=== PATIENT | male | born 1945 | race Caucasian/White ===

== ENCOUNTER 2018-03-10 16:06 | Emergency (ER) | payer OTHER, MEDICARE ==
[2018-03-10 16:10] VITALS: BMI 27.5
[2018-03-10 16:59] LABS: BASO % 0.8 % (0-2.0); EOS % 2.1 % (0-4.5); HEMATOCRIT 44.1 % (35.4-49); HEMOGLOBIN 15.1 GM/dL (11.7-16.9); LYMPH % 25.8 % (8-40); MCH 31.3 pg (25.7-33.7); MCHC 34.2 g/dl (32.0-35.9); MEAN CELL VOLUME 91.6 fl (80-96); MEAN PLT VOLUME 8.9 fl (7.5-11.1); MONO % 10.3 % (3.8-10.2); PLATELET COUNT 214 K/MM3 (134-434); RBC 4.82 M/mm3 (4.00-5.60); RDW 13.5 % (11.9-15.9); WHITE BLOOD COUNT 5.8 K/mm3 (4.0-10.0)
[2018-03-10] MEDS ORDERED: SODIUM CHLORIDE 1,000 ML IV SCH (17:00)
--- NOTE | 2018-03-10 17:00 | PDOC ---
History of Present Illness - General History Source: Patient Exam Limitations: No Limitations - History of Present Illness Initial Comments: 03/10/18 18:52 The patient is a 72 year old male, with a significant past medical history of hypertension and hyperlipidemia, who presents to the emergency department with left sided weakness and chest pain since approximately 13:30. As per daughter, the patient has been increasingly confused, to the point where he couldnt remember how to hold a fork to picker packer a piece of watermelon yesterday. Daughter reports patient is typically sharp and active at baseline. As a result , patient was consulted by Neurologist, Dr. Carrasquillo, and is supposed to follow up next week. Today, patient woke up feeling well, but around 13:00 he noticed difficulty walking up the stairs secondary to left sided weakness. He reports associated left sided chest pain, but denies any shortness of breath, diaphoresis, or palpitations. Patient denies any recent headache, dizziness, lightheadedness, blurry vision, double vision, numbness, tingling, neck, or, back pain. He denies any fever or chills. He denies any abdominal pain, nausea, vomiting, diarrhea, constipation, or bowel/bladder incontinence. He denies any recent travel or sick contacts. Family noted that he had a couple of insignificant falls in the past few weeks (falling out of bed, fall in the garden without any LOC or head injury), but he was fine until this Monday. Allergies: NKDA Past Surgical History: Hernia repair Social History: Social ETOH use. Non smoker. No recreational drug use PCP: Dr. Julien Neurologist: Dr. Carrasquillo <Rory Garland - Last Filed: 03/10/18 18:52> <Ubaldo Mcginnis - Last Filed: 03/12/18 08:11> - General Chief Complaint: CVA/TIA Stated Complaint: CHEST PAIN/LFT NUMBNESS Time Seen by Provider: 03/10/18 16:23 Past History <Rory Garland - Last Filed: 03/10/18 18:52> - Past Medical History COPD: No HTN: Yes Hypercholesterolemia: Yes - Suicide/Smoking/Psychosocial Hx Smoking History: Never smoked Have you smoked in the past 12 months: No Hx Alcohol Use: No Substance Use Type: Alcohol <Ubaldo Mcginnis - Last Filed: 03/12/18 08:11> - Past Medical History Allergies/Adverse Reactions: Allergies Allergy/AdvReac Type Severity Reaction Status Date / Time No Known Drug Allergies Allergy Verified 03/10/18 16:10 Home Medications: Ambulatory Orders Losartan Potassium 100 mg PO DAILY 03/10/18 Simvastatin 20 mg PO HS 03/10/18 Review of Systems - Review of Systems Able to Perform ROS?: Yes Comments:: 03/10/18 18:52 Constitutional: +Left sided weakness. Pt denies Fever, Chills HEENT: Denies vision changes, sore throat Respiratory: Denies cough, sob, hemoptysis Cardiac: +Chest pain. Denies palpitations, lightheadedness, leg swelling Abd/GI: Denies abd pain, nausea, vomiting, blood per rectum, melena, diarrhea : Denies dysuria, frequency, discharge Musculoskeletal: Denies back pain, joint swelling Skin: denies bruising, erythema, rash Neurological: +Left sided weakness, confusion, ataxia. Denies headache, numbness , focal weakness, tingling Hematologic: Denies anemia, easy bruising, easy bleeding <Garland,Giomilsy - Last Filed: 03/10/18 18:52> *Physical Exam - Vital Signs Last Vital Signs Temp Pulse Resp BP Pulse Ox 98 F 60 20 140/66 97 03/10/18 16:07 03/10/18 17:30 03/10/18 17:30 03/10/18 17:30 03/10/18 17:30 - Physical Exam Comments: 03/10/18 18:52 GENERAL: The patient is awake, alert, and fully oriented, Nontoxic - in no acute distress. HEAD: Normocephalic, atraumatic. EYES: extraocular movements intact, sclera anicteric, conjunctiva clear. ENT: Normal voice, Moist mucous membranes. NECK: Normal range of motion, supple LUNGS: Breath sounds equal, clear to auscultation bilaterally. No wheezes, no rhonchi, no rales. HEART: Regular rate and rhythm, normal S1 and S2 without murmur, rub or gallop. ABDOMEN: Soft, nontender, normoactive bowel sounds. No guarding, no rebound. . No CVA tenderness EXTREMITIES: Normal range of motion, no edema. No clubbing or cyanosis. No cords, erythema, or tenderness. NEUROLOGICAL: LUE/LLE weakness, no faical assymetry, CN2-12 intact, sensation intact b/l, normal finger to nose, rapid alternating movements, unstable gait PSYCH: Normal mood, normal affect. SKIN: Warm, Dry, normal turgor, <Garland,Giomilsy - Last Filed: 03/10/18 18:52> - Vital Signs Last Vital Signs Temp Pulse Resp BP Pulse Ox 98 F 66 18 179/60 99 03/10/18 16:07 03/10/18 16:07 03/10/18 16:07 03/10/18 16:07 03/10/18 16:07 <Ubaldo Mcginnis - Last Filed: 03/12/18 08:11> NIH Stroke Scale - Last Known Well Date/Time & Onset Date Last Known Well: 03/10/18 Time Last Known Well: 13:00 - Initial Evaluation Level of consciousness: Alert Ask patient the month and their age: Answers both correctly Ask patient to open & close eyes; make fist and let go: Obeys both correctly Best gaze (horizontal eye movement): Normal Visual field testing: No visual field loss Facial paresis (Show teeth/raise eyebrows/close eyes tight): Normal symmetrical movement Motor Function: Left Arm: Drift Motor Function: Right Arm: Normal (extends arm 90 (or 45) degrees for 10 seconds without drift Motor Function: Left Leg: Drift Motor Function: Right Leg: Normal (extends leg 30 degrees for 5 seconds without drift) Limb Ataxia: No ataxia Sensory(Use pinprick test arms,legs,trunk,face/side to side): Normal Best language (Describe picture, name items, read sentences): No Aphasia Dysarthria (read several words): Normal articulation Extinction and Inattention: No abnormality - Total Score NIH Stroke Scale Score: 2 <Ubaldo Mcginnis - Last Filed: 03/12/18 08:11> tPA Exclusion checklist 3-4.5h - Time Elapsed Date last known well: 03/10/18 Time last known well: 13:00 Elaspsed time: 1 Day(s) and 19 Hour(s) and 9 Minutes - Thrombolytic Therapy Candidate Is patient eligible for thrombolytic therapy: No - Exclusion Criteria 3-4.5 hr SBP greater than 185 or DBP greater than 110mmHg despite tx: No Recent IC/spinal surgery,head trauma or stroke<3mos.: No Hx IC hemorrhage, IC neoplasm, AV malformation or aneurysm: No Active internal bleeding: No Blding diathesis(low plt ct, inc PTT,INR>1.7 or use of NOAC): No Symptoms suggest subarachnoid hemorrhage: No CT demonstrates multilobar infarct(>1/3 cerebral hemiphere): No Arterial puncture at noncompressible site in previous 7 days: No Blood glucose concentration less than 50mg/dL (2.7mmol/L): No - Relative Exclusion Criteria 3-4.5 hr Life expectancy <1 yr or severe co-morbid illness: No : No Patient/family refused: No Rapid improvement: Yes Recent acute SD (w/in previous 3 months): No Seizure at onset with postictal residual neuro impairments: No Major surgery or serious trauma w/in previous 14 days: No Recent GI or hemorrhage (w/in previous 21 days): No - Add'l Relative Exclusion 3-4.5 hr NIHSS >25: No - Ineligibility reason(s) Reasons No tPA given: See reason(s) noted above <Ubaldo Mcginnis - Last Filed: 03/12/18 08:11> Heart Score/ECG Review - ECG Impressions Comment:: 03/10/18 17:22 Twelve-lead EKG was performed and reviewed by me. There is normal sinus rhythm with a normal rate. rate of 72 abnormal r wave progression no st changes suggestive of acute ischemia <Ubaldo Mcginnis - Last Filed: 03/12/18 08:11> Critical Care Time/MDM Note - Medical Decision Making Note: 03/10/18 18:19 Documentation prepared by Rory Garland, acting as certified medical records coder for Ubaldo Mcginnis MD. <Rory Garland - Last Filed: 03/10/18 18:52> - Medical Decision Making Note: 03/10/18 17:10 72y M presents with acute onset of weakness approx 1pm - LUE and LLE weakness with facial weakness per family, but improved here in ED. with mild LUE and LLE weakness, with normal gait. NIHSS at 2 code michael initiated bp noted mildly htn here stroke protocol initiated dw dr. lópez, agreed with management awaiting CT,but due to rapidly improving sypmtoms, and time frame (approx 3:30 form onset) pt not candidate for TPA will give asa if CT neg 03/10/18 18:22 case dw radiology consistent with acute/subdural hemorrhage, with associated 8mmof midline shift right to left. pt currently asypmtmoatic beside milde weakness no headache/n/v pt at baseline mental status per family per family pt does seem to have frequent minor/major falls, but had normal neuro status until this weekn when he seemed more confused and was referred to Dr. Carrasquillo for evaluation. pt not on any ac including asa curent bp 140/66 will transfer the pt to [facility] for further management and evaluation no concern for airway compromise at this time. is currently chatting with family bedside CRITICAL CARE DOCUMENTATION: I spent ~75 minutes of Critical Care time, excluding separately billable procedures, involving high complexity decision making to assess, manipulate and support vital system function(s) to treat single or multiple vital organ system failure and/or to prevent further life threatening deterioration of the patient' s condition. 03/10/18 18:[address] Aponte (Neurosurgery) at [facility] - accepted for transfer for higher level of care of SDH with shift The patient was seen and examined to determine medical stability. The patient is MEDICALLY STABLE at this time. Labs, EKG, radiological studies were ordered to expedite the patient's care. I certify that I have discussed with the patient and/or his medical office representative the following risks and benefits of the proposed transfer. Risks include worsening of patients condition during transport,auto accident, or permanent disability. Benefits include receiving specialized care not available at this facility. I certify that, based on the information available at this time, the medical benefits reasonably expected from the provision of appropriate medical treatment at the receiving facility outweigh the increased risk to the patient. I believe the patient/relative/guardian understands what I have explained and answered. The patient will be transferred to the service of dr. Aponte [facility] <Ubaldo Mcginnis - Last Filed: 03/12/18 08:11> Discharge Disposition <Rory Garland - Last Filed: 03/10/18 18:52> - Discharge Dispostion Admit: Yes - Transfer to Acute Care Facility Receiving Facility: [facility]. Accepting Physician:: Dr. Aponte <Ubaldo Mcginnis - Last Filed: 03/12/18 08:11> - Diagnosis Subdural hematoma - Discharge Dispostion Disposition: TRANSFER ACUTE CARE/OTHER HOSP Condition at time of disposition: Guarded - Referrals Referrals: Heather Julien MD [Primary Care Provider] - - Patient Instructions - Post Discharge Activity ED Treatment Course - LABORATORY CBC & Chemistry Diagram: 03/10/18 16:52 03/10/18 16:52 - ADDITIONAL ORDERS Additional order review: Laboratory Results 03/10/18 03/10/18 03/10/18 16:52 16:52 16:52 PT with INR 12.70 H INR 1.12 Sodium 136 Potassium 4.4 Chloride 103 Carbon Dioxide 30 Anion Gap 3 L BUN 17 Creatinine 1.2 Creat Clearance w eGFR 59.18 Random Glucose 150 H D Calcium 8.8 Total Bilirubin 0.7 AST 19 ALT 20 Alkaline Phosphatase 51 Creatine Kinase 114 Troponin I < 0.02 Total Protein 7.9 Albumin 3.6 Triglycerides 63 Cholesterol 187 Total LDL Cholesterol 105 H HDL Cholesterol 71 H Blood Type O POSITIVE Antibody Screen Negative 03/10/18 16:52 RBC 4.82 MCV 91.6 MCHC 34.2 RDW 13.5 MPV 8.9 Neutrophils % 61.0 Lymphocytes % 25.8 D Monocytes % 10.3 H Eosinophils % 2.1 Basophils % 0.8 - RADIOLOGY Radiograph Interpretation: 03/10/18 18:18 EXAM: Head CT INTERPRETED BY: Dr. Aguilera, Imaging head strength and conditioning coach REVIEWED BY: Dr. Mcginnis IMPRESSION: There is a large acute mixed density right subdural hematoma layering to a maximal thickness of approximately 2.2 cm. There is associated mass effect with 8 mm of midline shift from right to left. No obvious acute infarction. There is no skull fracture. There is no pneumocephalus. Incidental mucous retention cyst noted in the right maxillary sinus. <Rory Garland - Last Filed: 03/10/18 18:52> - LABORATORY CBC & Chemistry Diagram: 03/10/18 16:52 03/10/18 16:52 <Ubaldo Mcginnis - Last Filed: 03/12/18 08:11>
[2018-03-10 17:12] LABS: INR 1.12 (0.82-1.09); PROTHROMBIN TIME (PATIENT) 12.7 SEC (9.98-11.88)
[2018-03-10 17:25] LABS: ALBUMIN 3.6 g/dl (3.4-5.0); ANION GAP 3 (8-16); BLOOD UREA NITROGEN 17 mg/dL (7-18); CALCIUM 8.8 mg/dL (8.5-10.1); CHLORIDE 103 mmol/L (98-107); CHOLESTEROL 187 mg/dL (50-200); CO2 30 mmol/L (21-32); CREATININE 1.2 mg/dL (0.7-1.3); GLUCOSE,RANDOM 150 mg/dL (74-106); POTASSIUM 4.4 mmol/L (3.5-5.1); SGOT/AST 19 U/L (15-37); SGPT/ALT 20 U/L (12-78); SODIUM 136 mmol/L (136-145)
[2018-03-10 17:27] LABS: ALK PHOS 51 U/L (45-117); BILIRUBIN,TOTAL 0.7 mg/dL (0.2-1.0); HDL CHOLESTEROL 71 mg/dL (40-60); LDL CHOLESTEROL (ONLY SJRH) 105 mg/dL (5-100); TOT PROT 7.9 g/dl (6.4-8.2); TRIGLYCERIDES 63 mg/dL (35-160)
[2018-03-10] MEDS ORDERED: levETIRAcetam 500 MG/5 ML INJECTION VIAL IVPB ONE ×2 (18:39→18:47)
[2018-03-10 19:24] VITALS: BP 110/53; PULSE 59; TEMP 98
--- NOTE | 2018-03-12 12:46 | EKG ---
Test Reason : Blood Pressure : / mmHG Vent. Rate : 072 BPM Atrial Rate : 072 BPM P-R Int : 128 ms QRS Dur : 084 ms QT Int : 378 ms P-R-T Axes : 045 -05 046 degrees QTc Int : 413 ms SINUS RHYTHM WITH PREMATURE SUPRAVENTRICULAR COMPLEXES ANTERIOR INFARCT , AGE UNDETERMINED ABNORMAL ECG WHEN COMPARED WITH ECG OF 01-SEP-2005 18:46, PREMATURE SUPRAVENTRICULAR COMPLEXES ARE NOW PRESENT Confirmed by ELIZABETH BANGURA, MADISON ([id number]) on 03/12/2018 12:46:21 PM Referred By: Confirmed By:MADISON JOHNSON MD
== END 2018-03-10 19:20 | disposition short-term general hospital (02) ==
LOC: JER 16:06
PROC: 3E0337Z Introduction of Electrolytic and Water Balance Substance into Peripheral Vein, Percutaneous Approach (ICD-10-PCS; principal; 2018-03-10)
PROC: 3E033GC Introduction of Other Therapeutic Substance into Peripheral Vein, Percutaneous Approach (ICD-10-PCS; 2018-03-10)
DX: I62.00 Nontraumatic subdural hemorrhage, unspecified (principal); R27.0 Ataxia, unspecified; R29.810 Facial weakness; G81.94 Hemiplegia, unspecified affecting left nondominant side; I10 Essential (primary) hypertension; E78.5 Hyperlipidemia, unspecified; Z91.81 History of falling
CPT/HCPCS: 70450-TC; 80053; 82465; 82550; 83718; 83721; 84478; 84484; 85025; 85610; 86850; 86900; 86901; 93005; 93010; 96361; 96374; 99285-25; J7030